=== PATIENT | male | born 1945 | race Caucasian/White ===

== ENCOUNTER 2023-01-27 10:17 | Emergency (ER) | payer OTHER, SELFPAY ==
--- NOTE | 2023-01-27 10:23 | ED.DIZZY ---
HPI - Dizziness General Chief Complaint: Dizziness Stated Complaint: LIGHT HEADED Source: patient and RN notes reviewed Mode of arrival: ambulatory Limitations: no limitations History of Present Illness HPI Narrative: 77 y/o male with hx HTN presented for c/o feeling dizzy/lightheaded with some blurred vision while driving today. Onset approx 0930. Dizziness is worse after standing and walking. Reports it feels like he could pass out, denies room spinning. He states he feels a little short of breath, however he reports this is improving as it started a few months ago after cutting the grass and inhaling a large cloud of debris. Currently denies headache, chest pain, heart racing, wheezing, n/v/d/f/c. Patient is on his way to [place] from [place]. Related Data Home Medications Medication Instructions Recorded Confirmed losartan 50 mg tablet 50 mg 01/27/23 Allergies Allergy/AdvReac Type Severity Reaction Status Date / Time No Known Allergies Allergy Verified 01/27/23 10:47 Review of Systems Review of Systems: CONSTITUTIONAL: Denies body aches, fever, chills, or sweats. EYES: Reports visual changes, Denies redness, or discharge. ENT: Denies rhinorrhea, congestion, sore throat, or otalgia. CARDIOVASCULAR: Denies chest pain, palpitations, or edema. RESPIRATORY: reports mild cough and dyspnea. GASTROINTESTINAL: Denies abdominal pain, nausea, vomiting, or diarrhea. GENITOURINARY: Denies dysuria or hematuria. SKIN: Denies rash, itching, or wounds. MUSCULOSKELETAL: Denies back pain, joint pain, or myalgia. NEUROLOGIC: Endorses dizziness denies headache, numbness, tingling, or weakness PSYCH: Denies depression or anxiety. All systems reviewed & are unremarkable except as noted in HPI and below PMFSH Past Medical History Medical History (Updated 01/27/23 @ 11:22 by Erin Cha APRN) Hypertension Comments At time of signature, I have reviewed and agree with nursing past medical, surgical, social and family history unless otherwise noted. Please see nursing chart for further information. There is no relevant family history pertinent to the presenting complaint Exam Narrative: GENERAL: Well-appearing HEAD: Normocephalic, atraumatic. EYES: PERRLA, EOMI. ENT: Mucous membranes pink and moist. No rhinorrhea. TMs normal bilaterally. NECK: Normal AROM. Supple. No lymphadenopathy. CHEST: No respiratory distress. Clear to auscultation. HEART: Regular rate and rhythm. No murmur appreciated. Normal peripheral pulses. ABDOMEN: Soft, nontender, nondistended, normal active bowel sounds. MUSCULOSKELETAL: No bony tenderness. EXTREMITIES: Normal range of motion. 2+ Bilateral LE edema. SKIN: Warm, dry, no rash. Capillary refill normal. Normal skin turgor. NEURO:No focal deficits. Alert and oriented x3. Finger to nose intact bilaterally. EOMs intact without nystagmus. No facial droop/asymmetry noted bilaterally. Grimace intact. Intact sensation in face. Hearing intact bilaterally. Shoulder shrug intact. Strength 5/5 bilateral upper extremities. Strength 5/5 bilateral lower extremities. Ambulatory exam with a normal based, steady gait. PSYCH: Normal affect. Course Course Emergency Course: Patient is aware of diagnosis, understands and agrees to treatment plan. Anticipatory guidance given. Patient agrees to follow-up as directed and is aware of reasons to seek care at the emergency department. Portions of this record may have been created with voice recognition software Level of Care: Express Care Visit Vital Signs Vital signs: Vital Signs Temperature 97.5 F L 01/27/23 10:24 Pulse Rate 92 01/27/23 10:24 Respiratory Rate 16 01/27/23 10:24 Blood Pressure 160/91 H 01/27/23 10:24 Pulse Oximetry 100 01/27/23 10:24 Temperature 97.5 F L 01/27/23 10:24 Pulse Rate 92 01/27/23 10:24 Respiratory Rate 16 01/27/23 10:24 Blood Pressure 160/91 H 01/27/23 10:24 Pulse Oximetry 100
[2023-01-27 10:24] VITALS: BP 160/91; PULSE 92; RESP 16; TEMP 36.4; O2SAT 100
--- NOTE | 2023-01-27 11:02 | PC.NURSE ---
Patient transferred to [facility] from [facility] by ambulance. Patients car is parked in Handicapped parking space with doors locked. Patient has his car keys in his pocket
== END 2023-01-27 11:09 | disposition short-term general hospital (02) ==
PROVIDERS: Emergency Provider Nurse Practitioner Family
DX: R42 Dizziness and giddiness (principal); I10 Essential (primary) hypertension
CPT/HCPCS: 99215; G0463

== ENCOUNTER 2023-01-27 11:15 | Emergency (ER) | payer OTHER, SELFPAY ==
[2023-01-27] VITALS (16 sets, daily range): BP systolic 145–163; BP diastolic 88–101; PULSE 60–90; RESP 16–30; TEMP 36.5; O2SAT 96–100
--- NOTE | 2023-01-27 11:26 | ECG_ITS ---
Measurements Intervals [place] Rate: 80 P: 49 [place]: 180 QRS: -31 QRSD: 110 T: 29 QT: 366 QTc: 425 Interpretive Statements SINUS RHYTHM LEFT AXIS DEVIATION ABNORMAL ECG NO PREVIOUS ECG AVAILABLE FOR COMPARISON Electronically Signed On 01-27-2023 14:09:22 CDT by Jose Hauser M.D.
--- NOTE | 2023-01-27 11:31 | ECG_ITS ---
Measurements Intervals [place] Rate: 78 P: 54 [place]: 189 QRS: -36 QRSD: 95 T: 8 QT: 373 QTc: 427 Interpretive Statements SINUS RHYTHM LEFT AXIS DEVIATION PATTERN CONSISTENT WITH PULMONARY DISEASE Electronically Signed On 01-28-2023 17:06:16 CDT by Josué Soria M.D.
[2023-01-27 11:52] LABS: Basophils Absolute Auto 0.1 K/mm3 (0.0-0.1); Basophils Percent Auto 0.7 % (0.2-1.2); Eosinophils Absolute Auto 0.2 K/mm3 (0-0.3); Eosinophils Percent Auto 2.8 % (0-4.4); Hematocrit 42.2 % (42.0-52.0); Hemoglobin 13.9 g/dL (14.0-18.0); Immature Granulocyte Absolute 0.09 K/mm3 (0.00-0.031); Immature Granulocyte Percent A 1.2 % (0-0.5); Lymphocytes Absolute Auto 1.06 K/mm3 (0.9-3.2); Lymphocytes Percent Auto 14.1 % (18.3-44.2); Mean Corpuscular HGB Conc 32.9 g/dl (32-36); Mean Corpuscular Hemoglobin 28.4 pg (26-34); Mean Corpuscular Volume 86.1 fl (80-100); Mean Platelet Volume 10.4 fl (7.4-10.4); Monocytes Absolute Auto 0.7 K/mm3 (0.1-0.6); Monocytes Percent Auto 9.7 % (2.6-8.5); Neutrophils Absolute Auto 5.4 K/mm3 (1.3-6.7); Neutrophils Percent Auto 71.5 % (45.5-73.1); Platelet Count Result 264 k/mm3 (150-375); Red Cell Distribution Width 14.6 % (11.5-14.5); White Blood Count 7.5 K/mm3 (4.5-10.0)
[2023-01-27 12:03] LABS: Alanine Aminotransferase 24 U/L (6-50); Albumin Level 4.3 g/dL (3.5-5.1); Alkaline Phosphatase 94 U/L (38-126); Anion Gap 8 mmol/L (8-16); Aspartate Amino Transferase 26 U/L (17-59); Bilirubin,Total 0.6 mg/dL (0.2-1.3); Blood Urea Nitrogen 15 mg/dL (9-20); Carbon Dioxide 28 mmol/L (22-30); Chloride 101 mmol/L (98-107); Estimated CRCL calculation 75 ml/min; Estimated Glomerular Filt Rate > 60; Glucose 100 mg/dL (65-110); Potassium 4.1 mmol/L (3.4-5.0); Sodium 137 mmol/L (137-145)
--- NOTE | 2023-01-27 14:45 | ED.DIZZY ---
HPI - Dizziness General Chief Complaint: Dizziness Stated Complaint: dizzy, resolved visual changes Time Seen by Provider: 01/27/23 13:31 History of Present Illness HPI Narrative: 77-year-old male presented the emergency department for evaluation of dizziness. Patient states he was driving from [place] to [place] and he had onset of some dizziness. Patient states he pulled over and attempted to ambulate to see if this would help with the dizziness but it seemed to make it worse. Patient denies any numbness or weakness patient denied any associated speech changes. Patient states the dizziness like a spinning sensation lasted approximately 30 minutes. In the emergency department patient states all the symptoms have resolved. Patient denies any headache. Patient denies any prior history of meclizine. Patient denies any prior history of TIA or CVA. Related Data Home Medications Medication Instructions Recorded Confirmed losartan 50 mg tablet 50 mg 01/27/23 Allergies Allergy/AdvReac Type Severity Reaction Status Date / Time No Known Allergies Allergy Verified 01/27/23 11:25 Review of Systems Review of Systems: All systems reviewed & are unremarkable except as noted in HPI and below PMFSH Past Medical History Medical History (Updated 01/27/23 @ 14:49 by Karson Leo MD) Hypertension Exam Narrative: APPEARANCE: Well appearing, no pain, no distress, well-nourished. HEAD: normocephalic, atraumatic. EYES: PERRLA/EOMI, conjunctivae clear. NOSE: Normal no drainage NECK: Supple. No adenopathy, no masses. RESPIRATORY: Airway patent, respirations nonlabored. Clear to auscultation bilaterally, no rales, rhonchi, wheezing. CARDIOVASCULAR: Regular rate and rhythm without murmurs rubs or gallops. ABDOMINAL: Soft, nontender, nondistended, normal bowel sounds MUSCULOSKELETAL: Moves all extremities. Strength/ROM intact, No edema, No calf tenderness. NEURO: Alert. Cranial nerves II through XII intact. Grossly intact SKIN: Warm, dry. Normal Color Course Course Emergency Course: 77-year-old male presented the emergency department for evaluation of dizziness. Patient states all the symptoms are resolved and patient feels improved. Patient was able to ambulate in the ED without any symptoms. Patient denies any visual changes and denies any current numbness or weakness. Patient had a normal neuro exam. Patient's CBC CMP had no significant abnormalities. I discussed the possibility of this being vertigo versus a TIA and told the patient that in order to rule out a TIA patient will need to be admitted for MRI and patient declined. I also strongly encouraged the patient to return to the ED if he had any worsening symptoms and symptoms of stroke were discussed. All questions concerns were addressed and patient was well-appearing at time of discharge. Vital Signs Vital signs: Vital Signs Temperature 97.7 F 01/27/23 11:21 Pulse Rate 79 01/27/23 11:21 Respiratory Rate 16 01/27/23 11:21 Blood Pressure 163/94 H 01/27/23 11:21 Pulse Oximetry 100 01/27/23 11:21 Oxygen Delivery Room Air 01/27/23 11:21 Temperature 97.7 F 01/27/23 11:21 Pulse Rate 60 01/27/23 14:59 Respiratory Rate 16 01/27/23 14:59 Blood Pressure 145/88 H 01/27/23 14:59 Pulse Oximetry 100 01/27/23 14:59 Oxygen Delivery Room Air 01/27/23 11:21 MDM - Dizziness Differential Diagnosis Differential diagnosis: Likely benign paroxysmal positional vertigo, orthostatic hypotension, cerebrovascular accident and transient cerebral ischemia Lab Data Attestation: I reviewed the patient's lab results. 01/27/23 11:37 01/27/23 11:37 Labs: Lab Results 01/27/23 Range/Units 11:37 WBC 7.5 (4.5-10.0) K/mm3 RBC 4.90 (4.6-6.20) M/mm3 Hgb 13.9 L (14.0-18.0) g/dL Hct 42.2 (42.0-52.0) % MCV 86.1 (80-100) fl MCH 28.4 (26-34) pg MCHC 32.9 (32-36) g/dl RDW 14.6 H (11.5-1
== END 2023-01-27 15:01 | disposition home or self-care (01) ==
PROVIDERS: Emergency Provider Emergency Medicine
DX: R42 Dizziness and giddiness (principal); I10 Essential (primary) hypertension; R94.31 Abnormal electrocardiogram [ECG] [EKG]
CPT/HCPCS: 36415; 80053; 85025; 93005; 99284